=== PATIENT | male | born 1995 | race Hispanic/Latino ===

== ENCOUNTER 2016-06-19 19:05 | Emergency (ER) | payer OTHER ==
[~2016-06-19] VITALS: Ht 167.6 cm; Wt 63.5 kg
--- NOTE | 2016-06-19 20:33 | ED GI/GU/ABDOMINAL COMPLAINT ---
History of Present Illness General Chief Complaint: Lower Extremity Problems Stated Complaint: LEG PAIN HERNIA Source: patient, family Exam Limitations: no limitations Allergies Coded Allergies: No Known Allergies (06/19/16) Triage Note: PT STATES HE HAS A HERNIA IN HIS RIGHT INGUINAL FOLD AND IT IS STARTING TO HURT HIM AND STATES THE PAIN GOES DOWN HIS LEG. PAIN INCREASED SINCE FRIDAY. PT RIGHT LEG SWOLLEN AND STATES HE IS HAVING TROUBLE WALKING. HPI: 21/M with PMH of right side inguinal hernia presented to the ED complaining of 10/10, colicky, continuous pain over the hernia site started yesterday and is getting worse. Pain radiates to the right testicle. Walking and coughing makes pain worse. Patient tried Tylenol but it did not help. Patient reported that yesterday he could not reduce his hernia as usual after which a fever, chills, nausea without vomiting. All his symptom except pain resolved earlier today. Patient had nonradiating, intermittent, dull, 9/10 lateral right knee pain that started this morning after he woke up from sleep. Moving the knee makes pain worse and Tylenol didn't help. Patient denies any trauma, erythema, swelling, warmth over the right knee. No other joint pain. She has stated that he is moving his house for which she needed to go up and down the stairs multiple times yesterday. ([place],[facility]) Vital Signs & Intake/Output Vital Signs & Intake/Output Vital Signs Date Time Temp Pulse Resp B/P Pulse O2 O2 Flow FiO2 Ox Delivery Rate 06/19 2128 97.1 64 18 110/58 100 Room Air 06/19 2007 Room Air 06/19 1927 98.7 79 16 122/72 100 Room Air ED Intake and Output 06/20 0000 06/19 1200 Intake Total Output Total Balance Patient 63.503 kg Weight Triage Nurses Notes Reviewed? yes ([place],RJ Ojeda) Past History Travel History Traveled to [place] past 21 day No Medical History Neurological: NONE EENT: NONE Cardiovascular: NONE Respiratory: NONE Gastrointestinal: NONE Hepatic: NONE Renal: NONE Musculoskeletal: NONE Psychiatric: NONE Endocrine: NONE Blood Disorders: NONE Cancer(s): NONE CANDY DIPPER/Reproductive: NONE Psychosocial History What is your primary language Spanish Tobacco Use: Current Daily Use Daily Tobacco Use Amount/Type: Smokeless tobacco daily ETOH Use: occasional use Illicit Drug Use: marijuana ([place],[facility]) Medical History Any Pertinent Medical History? none Surgical History Surgical History: non-contributory Family History Hx Contributory? No (RJ RAUSCH MD) Review of Systems Review of Systems Constitutional: Reports: chills, fever. Denies: diaphoresis. EENTM: Reports: see HPI. Respiratory: Denies: cough, orthopnea, short of breath. Cardiovascular: Denies: chest pain, palpitations. GI: Reports: abdominal pain, constipation, nausea. Denies: bloating, diarrhea, distention, vomiting. Genitourinary: Denies: dysuria, hematuria. Musculoskeletal: Reports: joint pain (lateral right knee). ([place],[facility]) Review of Systems Skin: Reports: no symptoms. Neurological/Psychological: Reports: no symptoms. Hematologic/Endocrine: Reports: no symptoms. Immunologic/Allergic: Reports: no symptoms. All Other Systems: Reviewed and Negative (RJ RAUSCH MD) Physical Exam Physical Exam General Appearance: alert, moderate distress, thin Head: atraumatic, normal appearance Eyes: Bilateral: normal appearance, PERRL, EOMI. Respiratory: normal breath sounds Cardiovascular: regular rate/rhythm Gastrointestinal: normal bowel sounds, soft, tenderness over right inguinal area., hernia is reducible. No warmth or erythema over hernia area ([place],[facility]) Physical Exam Ears, Nose, Throat, Mouth: hearing grossly normal, moist mucous membrane Neck: normal inspection, supple Back: normal inspection, normal range of motion Extremities: normal range of motion Neurologic/Psych: no motor/sensory deficits, awake, alert, oriented x 3, normal gait, normal mood/affect Skin: intact, normal color, warm/dry Core Measures ACS in differential dx? No Severe Sepsis Present: No Septic Shock Present: No (RJ RAUSCH MD) Progress Differential Diagnosis: strangulated hernia, appendicitis, epididymitis ([place],[facility]) Plan of Care: Orders Procedure Date/time Status LACTIC ACID 06/19 2020 Complete COMPREHENSIVE METABOLIC PANEL 06/19 2020 Complete CBC WITHOUT DIFFERENTIAL 06/19 2020 Complete Laboratory Tests 06/19/162044: Anion Gap 12, Estimated GFR > 60, BUN/Creatinine Ratio 14.3, Glucose 77, Lactic Acid 0.7, Calcium 9.3, Total Bilirubin 1.0, AST 48, ALT 65, Alkaline Phosphatase 58, Total Protein 6.9, Albumin 4.2, Globulin 2.7, Albumin/Globulin Ratio 1.6 06/19/162039: CBC w Diff NO MAN DIFF REQ, RBC 4.80, MCV 80.2, MCH 26.1 L, RDW 14.8 H, MPV 7.3 L, Gran % 65.9, Lymphocytes % 20.9, Monocytes % 9.7 H, Eosinophils % 3.1, Basophils % 0.4, Absolute Granulocytes 4.8, Absolute Lymphocytes 1.5, Absolute Monocytes 0.7 H, Absolute Eosinophils 0.2, Absolute Basophils 0, PUBS MCHC 32.5 L Patient had a history of hernia, yesterday after heavy lifting the hernia came out and he was unable to reduce it all day after which she started to complain of 10/10 pain over the area. Earlier today he was able to reduce the hernia after which the pain was decreased but didn't totally go away. Patient white blood cell is within normal limits, lactic acid is not elevated. CT scan of the abdomen was benign and did not show any acute pathology. Patient will be discharged ([place],[facility]) Diagnostic Imaging: Viewed by Me: CT Scan. Discussed w/RAD: CT Scan. Radiology Impression: PATIENT: YOKO PALM PRESENT AGE: 21 PATIENT ACCOUNT NO: [id number] : 95 LOCATION: [facility] ORDERING PHYSICIAN: NINO ORDAZ MD SERVICE DATE: 06/19/16-2020 EXAM TYPE : CAT - CT ABD & PELVIS W IV CONTRAST EXAMINATION: CT ABDOMEN AND PELVIS WITH CONTRAST CLINICAL INFORMATION: Unreducible inguinal hernia COMPARISON: None. TECHNIQUE: Multidetector volumetric imaging was performed of the abdomen and pelvis after the IV administration of 95 mL of Optiray 320 intravenous contrast. Sagittal and coronal reformatted images were obtained on the technologist's workstation. DLP: 258.43 mGy-cm. FINDINGS: LUNG BASES: The visualized lung bases are unremarkable. LIVER, GALLBLADDER, AND BILIARY TREE: The liver is normal in size, shape, and attenuation. No focal hepatic lesion or biliary ductal dilatation is present. The gallbladder is unremarkable with no evidence of radiopaque gallstones, gallbladder wall thickening, or obvious pericholecystic inflammatory changes. PANCREAS: Unremarkable. SPLEEN: Unremarkable. ADRENAL GLANDS: Unremarkable. KIDNEYS AND URETERS: The kidneys are normal in size, shape , and attenuation. No hydronephrosis, hydroureter, or calculi seen. No perinephric stranding. BLADDER: Unremarkable. GASTROINTESTINAL TRACT: The small and large bowel are unremarkable. The appendix is unremarkable. MESENTERY: Small amount of fluid in the cul-de-sac. No inflammation. No free air. ABDOMINAL WALL: No ventral wall hernia. No inguinal hernia. LYMPH NODES: Normal. VASCULAR: Unremarkable. PELVIC VISCERA: Unremarkable. OSSEOUS STRUCTURES: Unremarkable. IMPRESSION: Normal CT scan abdomen pelvis. No ventral wall or inguinal hernia. DICTATED BY: ANAHI CARRION MD DATE/TIME DICTATED:06/19/162142 BRICK PAVING CHECKER :JUAN DATE/TIME TRANSCRIBED:06/19/162142 CONFIDENTIAL, DO NOT COPY WITHOUT APPROPRIATE AUTHORIZATION. <Electronically signed in Other Vendor System> SIGNED BY: ANAHI CARRION MD 06/19/162151 Initial ED EKG: none ([place],RJ Ojeda) Departure Departure Condition: Stable Departure Forms: Customer Survey General Discharge Information ([place],[facility]) Departure Disposition: HOME OR SELF CARE Clinical Impression Primary Impression: Right inguinal hernia Referrals: PATIENT HAS NO PRIMARY CARE DR (PCP/Family) MICHAEL [place],MARGARETH Clark Additional Instructions: No heavy lifting. Follow-up with Dr. Brown from surgery. Return if the hernia comes out when you're unable to get it back in, if you develops any fevers or chills, the pain worsens or for any concerns. Resident Co-Sign Statement Statement: ED Attending supervision documentation- [X] I saw and evaluated the patient. I have also reviewed all the pertinent lab results and diagnostic results. I agree with the findings and the plan of care as documented in the Resident's documentation. [X] I have reviewed the ED Record and agree with the Resident's documentation. [] Additions or exceptions (if any) to the Resident's note and plan are summarized below: [Patient presents with pain to his right groin area. Patient states he has a known hernia and has been doing some heavier lifting than normal. Yesterday the hernia came out and he was unable to reduce it all day. By this morning he was able to reduce it and the pain has decreased however has not gone away. At its worst the pain was 10 out of 10 and is currently a 7 out of 10. The pain radiates into his lower abdomen. There is no nausea or vomiting. The pain is cramping in nature. Patient denies any fevers or chills. Patient states that throughout the day the hernia has popped out but he is able to reduce it every time. Patient's lab work and CAT scan are normal. Patient will follow up as an outpatient with surgery. Patient advised of signs of incarceration and instructed to return if any of those signs occur or as needed.] ([place],RJ Ojeda)
[2016-06-19 20:56] LABS: ABSOLUTE BASOPHIL COUNT 0 /CUMM (0.0-0.2); ABSOLUTE EOSINOPHIL COUNT 0.2 /CUMM (0.0-0.7); ABSOLUTE GRANULOCYTE CT 4.8 /CUMM (1.4-6.5); ABSOLUTE LYMPH COUNT 1.5 /CUMM (1.2-3.4); ABSOLUTE MONOCYTE COUNT 0.7 /CUMM (0.10-0.60); BASOPHIL % 0.4 % (0.0-2.0); EOSINOPHIL % 3.1 % (0-5); GRANULOCYTE % 65.9 % (42.2-75.2); HEMATOCRIT 38.5 % (42-52); MEAN CORPUSCULAR HGB 26.1 PG (27.0-31.0); MEAN CORPUSCULAR HGB CONC 32.5 G/DL (33.0-37.0); MEAN CORPUSCULAR VOLUME 80.2 FL (80.0-94.0); MEAN PLATELET VOLUME 7.3 FL (7.4-10.4); PLATELET COUNT 199 /CUMM (130-400); RBC DISTRIBUTION WIDTH 14.8 % (11.5-14.5); WHITE BLOOD CELL COUNT 7.3 /CUMM (4.8-10.8)
[2016-06-19 21:29] VITALS: BP 110/58
--- NOTE | 2016-06-19 21:52 | CT SCAN REPORT ---
EXAMINATION: CT ABDOMEN AND PELVIS WITH CONTRAST CLINICAL INFORMATION: Unreducible inguinal hernia COMPARISON: None. TECHNIQUE: Multidetector volumetric imaging was performed of the abdomen and pelvis after the IV administration of 95 mL of Optiray 320 intravenous contrast. Sagittal and coronal reformatted images were obtained on the technologist's workstation. DLP: 258.43 mGy-cm. FINDINGS: LUNG BASES: The visualized lung bases are unremarkable. LIVER, GALLBLADDER, AND BILIARY TREE: The liver is normal in size, shape, and attenuation. No focal hepatic lesion or biliary ductal dilatation is present. The gallbladder is unremarkable with no evidence of radiopaque gallstones, gallbladder wall thickening, or obvious pericholecystic inflammatory changes. PANCREAS: Unremarkable. SPLEEN: Unremarkable. ADRENAL GLANDS: Unremarkable. KIDNEYS AND URETERS: The kidneys are normal in size, shape, and attenuation. No hydronephrosis, hydroureter, or calculi seen. No perinephric stranding. BLADDER: Unremarkable. GASTROINTESTINAL TRACT: The small and large bowel are unremarkable. The appendix is unremarkable. MESENTERY: Small amount of fluid in the cul-de-sac. No inflammation. No free air. ABDOMINAL WALL: No ventral wall hernia. No inguinal hernia. LYMPH NODES: Normal. VASCULAR: Unremarkable. PELVIC VISCERA: Unremarkable. OSSEOUS STRUCTURES: Unremarkable. IMPRESSION: Normal CT scan abdomen pelvis. No ventral wall or inguinal hernia.
== END 2016-06-19 22:15 ==
LOC: ERH 19:05
PROVIDERS: Student in an Organized Health Care Education/Training Program
DX: K40.90 Unilateral inguinal hernia, without obstruction or gangrene, not specified as recurrent (principal)
CPT/HCPCS: 74177; 96374; J1885

== ENCOUNTER → 2016-07-26 | Day surgery (SDC) | payer OTHER ==
[~2016-07-26] VITALS: Ht 172.7 cm; Wt 68.0 kg
[~2016-07-26] MED LIST: COLACE100 M1 PO; DILAUDID2 M1 PO
--- NOTE | 2016-07-26 14:20 | Operative Report ---
Operative/Inv Procedure Report Surgery Date: 07/26/16 Name of Procedure: Laparoscopic right inguinal hernia repair Pre-Operative Diagnosis: Right inguinal hernia Post-Operative Diagnosis: Same Estimated Blood Loss: scant Surgeon/Freight Tallier: MICHAEL BAY,MARGARETH Clark/Suzi TAN Anesthesia: general endotracheal tube Implants: Parietex mesh Operative/Procedure Note Note: After consent she was brought to the operating room and laid supine. Gen. anesthesia was obtained and her abdomen was prepped and draped. Skin below the umbilicus was after local anesthesia transverse incision made sharply. We dissected the to the right-sided rectus fascia which was incised transversely and stay sutures placed. The muscles retracted laterally and a plane behind it developed with a peanut. The dissecting balloon was placed to the level of pubis and inflated under direct vision the camera. It was then deflated and replaced with a blunt Gallegos port. Gas was instilled. 2, 5 mm ports placed in the infraumbilical midline after local anesthesia was instilled under direct vision and camera. Dissection was begun at the pubis and symphysis delineated. Domingo's ligament was cleared there is no direct hernia. There is a large indirect hernia and the iliopubic tract developed. The cord structures and circumvention dissected. There were peeled off the hernia sac bluntly. The sac was then extracted from the internal ring. This took quite a bit of dissection due to the size of the hernia. The tissues were then reflected medially. A right-sided Parietex mesh was then placed in the cavity. It was placed around the cord structures re-create the internal ring and cover the femoral indirect spaces. Once the mesh was in proper position the gas was allowed to escape on maintaining proper orientation of it. Ports and delivered fascia closed with 0 Vicryl suture. Skin incisions closed with 4-0 Vicryl. Steri-Strips and sterile dressing applied sponge and needle counts are correct Findings: Indirect
== END ==
LOC: STS 01:15
DX: K40.90 Unilateral inguinal hernia, without obstruction or gangrene, not specified as recurrent (principal); J45.909 Unspecified asthma, uncomplicated
CPT/HCPCS: C1781; J0131; J0690; J2250

== ENCOUNTER 2016-07-27 22:12 | Observation (INO) | payer OTHER ==
[~2016-07-27] VITALS: Ht 172.7 cm; Wt 65.8 kg
--- NOTE | 2016-07-27 22:39 | ED GI/GU/ABDOMINAL COMPLAINT ---
History of Present Illness General Chief Complaint: General Adult Stated Complaint: +N/V, ABD PAIN, HAD HERNIA SX YESTERDAY Source: patient Exam Limitations: no limitations Vital Signs & Intake/Output Vital Signs & Intake/Output ED Intake and Output 07/29 0000 07/28 1200 Intake Total 1320 780 Output Total 800 Balance 520 780 Intake, IV 600 300 Intake, Oral 720 480 Output, Urine 800 Patient 145 lb Weight Allergies Coded Allergies: morphine (Intermediate, GENERALIZED RASH AND ITCHING 07/28/16) Reconcile Medications Docusate Sodium (Colace) 100 MG CAPSULE 1 CAP PO BID constipation Hydromorphone HCl (Dilaudid) 2 MG TABLET 1-2 TAB PO Q4-6H PRN PAIN Triage Note: PT TO TRIAGE WITH HX OF HERNIA REPAIR YESTERDAY AND TODAY PT C/O ABD PAIN 03/18, N/Vx4 TIMES AT HOME. PT VOMITED LARGE AMOUNT OF UNDIGESTED FOOD IN TRIAGE. NO BLOOD NOTED IN EMESIS. LAST SMALL BM TODAY. VSS. Triage Nurses Notes Reviewed? yes Onset: Abrupt Duration: hour(s): (several) Timing: multiple episodes today Severity Numbers: 10 Location: generalized abdomen Radiation: no radiation Activities at Onset: HERNIA SURGERY YESTERDAY No Modifying Factors: none Associated Symptoms: abdominal pain, nausea/vomiting HPI: This is a 21-year-old male presents to the ER with chief complaint of acute abdominal pain nausea and vomiting multiple episodes at home. According to the cousin some of the vomiting looked like it contained stool. He is status post hernia repair by Dr. Brown yesterday. He was feeling okay but had some pain after surgery yesterday. Today the pain has gotten much more intense. Last bowel movement was this morning within normal limits. Denies any fever or chills. Pain is diffuse, made worse with nausea and vomiting. Past History Travel History Traveled to [place] past 21 day No Medical History Any Pertinent Medical History? see below for history Neurological: NONE EENT: NONE Cardiovascular: NONE Respiratory: NONE Gastrointestinal: NONE Hepatic: NONE Renal: NONE Musculoskeletal: NONE Psychiatric: NONE Endocrine: NONE Blood Disorders: NONE Cancer(s): NONE QUALITY IMPROVEMENT ENGINEER/Reproductive: NONE Surgical History Surgical History: non-contributory Psychosocial History What is your primary language Sinhala Tobacco Use: Current Daily Use Daily Tobacco Use Amount/Type: => 5 Cigarettes daily Family History Hx Contributory? No Review of Systems Review of Systems Constitutional: Reports: malaise, weakness. Denies: chills, diaphoresis. EENTM: Reports: no symptoms. Respiratory: Reports: no symptoms. Cardiovascular: Denies: chest pain, palpitations. GI: Reports: abdominal pain, bloating, nausea, vomiting. Genitourinary: Reports: see HPI (RIGHT SCROTAL SWELLING). Denies: discharge, dysuria. Musculoskeletal: Reports: no symptoms. Skin: Reports: no symptoms. Neurological/Psychological: Reports: anxiety. Hematologic/Endocrine: Denies: bruising, bleeding, polyuria, polydipsia. Immunologic/Allergic: Denies: splenectomy. All Other Systems: Reviewed and Negative Physical Exam Physical Exam General Appearance: alert, awake, anxious, moderate distress, thin Head: atraumatic, normal appearance Eyes: Bilateral: normal appearance, PERRL, EOMI. Ears, Nose, Throat, Mouth: hearing grossly normal, DRY MUCUS MEMBRANES Neck: normal inspection, supple, full range of motion Respiratory: normal breath sounds, chest non-tender, no respiratory distress Cardiovascular: regular rate/rhythm Peripheral Pulses: 2+ radial (R), 2+ radial (L) Gastrointestinal: FIRM, PERITONEAL SIGNS, INCISION CLEAN,DRY AND INTACT Male Genitals: RIGHT SCROTAL SWELLING, NO FIRM MASSES Extremities: normal range of motion Neurologic/Psych: awake, alert, oriented x 3 Core Measures ACS in differential dx? No Severe Sepsis Present: No Septic Shock Present: No Progress Differential Diagnosis: PUD/GERD, perforated viscous, SBO, PERITONITIS Plan of Care: Orders Procedure Date/time Status Place in observation 07/28 217 Active URINALYSIS 07/27 2253 Active PARTIAL THROMBOPLASTIN TIME 07/27 2253 Complete PROTHROMBIN TIME 07/27 2253 Complete COMPREHENSIVE METABOLIC PANEL 07/27 2253 Complete CBC WITHOUT DIFFERENTIAL 07/27 2253 Complete Laboratory Tests 07/27/162054: Anion Gap 12, Estimated GFR > 60, BUN/Creatinine Ratio 16.3, Glucose 90, Calcium 9.5, Total Bilirubin 1.1, AST 24, ALT 33, Alkaline Phosphatase 50, Total Protein 7.4, Albumin 4.7, Globulin 2.7, Albumin/Globulin Ratio 1.7, PT 11.3, INR 1.08, APTT 30, CBC w Diff NO MAN DIFF REQ, RBC 5.03, MCV 81.1, MCH 26.8 L, RDW 14.4, MPV 6.9 L, Gran % 65.7, Lymphocytes % 26.8, Monocytes % 6.8, Eosinophils % 0.3, Basophils % 0.4, Absolute Granulocytes 5.8, Absolute Lymphocytes 2.4, Absolute Monocytes 0.6, Absolute Eosinophils 0, Absolute Basophils 0, PUBS MCHC 33.0 11:32 PM DILAUDID GIVEN. PATIENT REPORTS NO RELIEF. CT SCAN PENDING. 1:[address] consistent with ileus, air in the subcutaneous tissues as well as into the mediastinum. Some postop swelling but no definite obstruction. Patient still with intractable nausea and abdominal pain after Dilaudid and morphine. Patient had allergic reaction to morphine. MULTIPLE DOSES OF IV PAIN CONTROL, IV ANTIEMETICS GIVEN. D/W DR COOLEY. CT NEGATIVE FOR ACUTE PROCESS. WILL PLACE IN OBSERVATION TO CONTROL SYMPTOMS. ([place]O BAY,JAYESH) Diagnostic Imaging: Viewed by Me: CT Scan. Discussed w/RAD: CT Scan. Radiology Impression: PATIENT: YOKO PALM PRESENT AGE: 21 PATIENT ACCOUNT NO: [id number] : 95 LOCATION: [facility] ORDERING PHYSICIAN: JAYESH KHAN MD SERVICE DATE: 07/27/16 EXAM TYPE: CAT - CT ABD & PELVIS W IV CONTRAST EXAMINATION: CT ABDOMEN AND PELVIS WITH CONTRAST CLINICAL INFORMATION: Abdominal pain. Vomiting. COMPARISON: CT scan abdomen pelvis 06/19/2016 TECHNIQUE: Multidetector volumetric imaging was performed of the abdomen and pelvis before and after the IV administration of 94 mL of Optiray intravenous contrast. Sagittal and coronal reformatted images were obtained on the technologist's workstation. DLP: 299.18 mGy-cm FINDINGS: LUNG BASES: Air seen anterior to the heart at the lung base, mediastinum or pericardium. There is air in the right and left subcutaneous tissue along the anterior chest wall. No pneumothorax or pleural effusion. No infiltrate. MESENTERY/ABDOMINAL WALL: No ventral wall hernia. Patient had a right inguinal repair recently. There is no evidence of recurrent inguinal hernia. This postoperative changes with subcutaneous air on the right and left side of the abdomen. There is a collection of air around the umbilicus where there is some soft tissue stranding at the umbilicus. Small amount of fluid in the pelvis and the right inguinal region consistent with the recent surgery. No abscess. There is air extending into the right scrotal sac with fluid. LIVER, GALLBLADDER, AND BILIARY TREE: The liver is normal in size, shape, and attenuation. No focal hepatic lesion or biliary ductal dilatation is present. The gallbladder is unremarkable with no evidence of radiopaque gallstones, gallbladder wall thickening, or obvious pericholecystic inflammatory changes. PANCREAS: Unremarkable. SPLEEN: Unremarkable. ADRENAL GLANDS: Unremarkable. KIDNEYS AND URETERS: The kidneys are normal in size, shape, and attenuation. No hydronephrosis, hydroureter, or calculi seen. No perinephric stranding. BLADDER: Unremarkable. GASTROINTESTINAL TRACT: Mild prominence of some small bowel loops in the midabdomen with scattered air-fluid levels in large and small bowel. No transition point. May be mild ileus but no evidence for obstruction. No bowel wall thickening or edema. The appendix is not identified. The LYMPH NODES: Normal. VASCULAR: Unremarkable. PELVIC VISCERA: Unremarkable. OSSEOUS STRUCTURES : Unremarkable. IMPRESSION: There is free air in the abdomen as well as air in the subcutaneous tissues in the right and left anterior abdominal wall and around the umbilicus and extending into the right scrotal sac. Small amount of fluid in the mesentery but no abscess. Mild prominence of some small bowel loops without transition point raising question of ileus but no obstruction. Changes are all consistent with history of recent surgery of right inguinal repair with no recurrent hernia. This critical result was discussed with Dr. Khan on 2016, 1:30 AM and it was ascertained that the content and urgency of the report was understood at the time of direct communication. DICTATED BY: ANAHI CARRION MD DATE/TIME DICTATED:07/28/16118 HOTEL OR MOTEL ROOM SERVICE SUPERVISOR:JUAN DATE/TIME TRANSCRIBED:07/28/16118 CONFIDENTIAL, DO NOT COPY WITHOUT APPROPRIATE AUTHORIZATION. <Electronically signed in Other Vendor System> SIGNED BY: ANAHI CARRION MD 07/28/16 0141 Initial ED EKG: none Departure Departure Time of Disposition: 217 Disposition: STILL A PATIENT Condition: Stable Clinical Impression Primary Impression: Ileus Secondary Impressions: Post-operative pain Referrals: PATIENT HAS NO PRIMARY CARE DR (PCP/Family) Departure Forms: Customer Survey General Discharge Information Prescriptions: Current Visit Scripts Hydromorphone HCl (Dilaudid) 1-2 TAB PO Q4-6H PRN PAIN #24 TAB Docusate Sodium (Colace) 1 CAP PO BID #20 CAP Observation Note Spoke With: DAT COOLEY DO Physician Advisor Notified: HUGH WEBB DO Place Patient In: Non-ED OBS Care Area Rationale for Observation: My rational for observation is as follows [IV FLUIDS, IV ANTIEMETICS, PAIN CONTROL, ADVANCE DIET, SERIAL ABDOMINAL EXAMINATIONS]. Critical Care Note Critical Care Note Critical Care Time: 30-74 min
[2016-07-27 23:09] LABS: ABSOLUTE BASOPHIL COUNT 0 /CUMM (0.0-0.2); ABSOLUTE EOSINOPHIL COUNT 0 /CUMM (0.0-0.7); ABSOLUTE GRANULOCYTE CT 5.8 /CUMM (1.4-6.5); ABSOLUTE LYMPH COUNT 2.4 /CUMM (1.2-3.4); ABSOLUTE MONOCYTE COUNT 0.6 /CUMM (0.10-0.60); BASOPHIL % 0.4 % (0.0-2.0); EOSINOPHIL % 0.3 % (0-5); GRANULOCYTE % 65.7 % (42.2-75.2); HEMATOCRIT 40.8 % (42-52); MEAN CORPUSCULAR HGB 26.8 PG (27.0-31.0); MEAN CORPUSCULAR VOLUME 81.1 FL (80.0-94.0); MEAN PLATELET VOLUME 6.9 FL (7.4-10.4); PLATELET COUNT 209 /CUMM (130-400); RBC DISTRIBUTION WIDTH 14.4 % (11.5-14.5); RED BLOOD CELL CT 5.03 /CUMM (4.70-6.10); WHITE BLOOD CELL COUNT 8.9 /CUMM (4.8-10.8)
[2016-07-27 23:18] LABS: PT 11.3 SEC (9.4-12.5); PTT 30 SEC (25-37)
--- NOTE | 2016-07-28 01:41 | CT SCAN REPORT ---
EXAMINATION: CT ABDOMEN AND PELVIS WITH CONTRAST CLINICAL INFORMATION: Abdominal pain. Vomiting. COMPARISON: CT scan abdomen pelvis 06/19/2016 TECHNIQUE: Multidetector volumetric imaging was performed of the abdomen and pelvis before and after the IV administration of 94 mL of Optiray intravenous contrast. Sagittal and coronal reformatted images were obtained on the technologist's workstation. DLP: 299.18 mGy-cm FINDINGS: LUNG BASES: Air seen anterior to the heart at the lung base, mediastinum or pericardium. There is air in the right and left subcutaneous tissue along the anterior chest wall. No pneumothorax or pleural effusion. No infiltrate. MESENTERY/ABDOMINAL WALL: No ventral wall hernia. Patient had a right inguinal repair recently. There is no evidence of recurrent inguinal hernia. This postoperative changes with subcutaneous air on the right and left side of the abdomen. There is a collection of air around the umbilicus where there is some soft tissue stranding at the umbilicus. Small amount of fluid in the pelvis and the right inguinal region consistent with the recent surgery. No abscess. There is air extending into the right scrotal sac with fluid. LIVER, GALLBLADDER, AND BILIARY TREE: The liver is normal in size, shape, and attenuation. No focal hepatic lesion or biliary ductal dilatation is present. The gallbladder is unremarkable with no evidence of radiopaque gallstones, gallbladder wall thickening, or obvious pericholecystic inflammatory changes. PANCREAS: Unremarkable. SPLEEN: Unremarkable. ADRENAL GLANDS: Unremarkable. KIDNEYS AND URETERS: The kidneys are normal in size, shape, and attenuation. No hydronephrosis, hydroureter, or calculi seen. No perinephric stranding. BLADDER: Unremarkable. GASTROINTESTINAL TRACT: Mild prominence of some small bowel loops in the midabdomen with scattered air-fluid levels in large and small bowel. No transition point. May be mild ileus but no evidence for obstruction. No bowel wall thickening or edema. The appendix is not identified. The LYMPH NODES: Normal. VASCULAR: Unremarkable. PELVIC VISCERA: Unremarkable. OSSEOUS STRUCTURES: Unremarkable. IMPRESSION: There is free air in the abdomen as well as air in the subcutaneous tissues in the right and left anterior abdominal wall and around the umbilicus and extending into the right scrotal sac. Small amount of fluid in the mesentery but no abscess. Mild prominence of some small bowel loops without transition point raising question of ileus but no obstruction. Changes are all consistent with history of recent surgery of right inguinal repair with no recurrent hernia. This critical result was discussed with Dr. Khan on 05/27/2017, 1:30 AM and it was ascertained that the content and urgency of the report was understood at the time of direct communication.
--- NOTE | 2016-07-28 02:41 | History & Physical ---
MARIO HERNANDEZ 07/28/16 0228: General Information and HPI MD Statement: I have seen and personally examined RUDY PALM and documented this H&P. The patient is a 21 year old M who presented with a patient stated chief complaint of []. Source of Information: patient, family Exam Limitations: no limitations History of Present Illness: Rudy Palm is a 21 year old male, relatively healthy who is POD #1 s/p uneventful laparoscopic right inguinal hernia repair with mesh. He received a TAP block preoperatively was discharged home yesterday without complication with a prescription for Percocet. According to the patient and his female cousin who took care of him initially post-op, he went home, took his prescribed pain medication and it did not ease his pain. He also proceeded to vomit all of his stomach contents over the last 24 hours, unable to keep anything down. The patient also endorses chest pain across the middle portion of his chest. The pain does not radiate into his jaw or down his left arm. Concerned that something went wrong during the surgery and his continued 10/10 abdominal pain, they came to the ED for evaluation. Denies fever, chills, shortness of breath, cough, or dysuria. He has had normal bowel movements, the last was yesterday evening. Feels he is unable to pass gas. Past History Travel History Traveled to [place] past 21 day No Medical History Neurological: NONE EENT: NONE Cardiovascular: NONE Respiratory: NONE Gastrointestinal: NONE Hepatic: NONE Renal: NONE Musculoskeletal: NONE Psychiatric: NONE Endocrine: NONE Blood Disorders: NONE Cancer(s): NONE GRAB DRIVER/Reproductive: NONE Surgical History Surgical History: non-contributory Past Family/Social History Psychosocial History Smoking Status: Current Everyday Smoker Review of Systems Review of Systems Constitutional: Reports: see HPI. GI: Reports: abdominal pain, nausea, vomiting. Genitourinary: Denies: dysuria. Exam & Diagnostic Data Last 24 Hrs of Vital Signs/I&O Vital Signs Date Time Temp Pulse Resp B/P Pulse O2 O2 Flow FiO2 Ox Delivery Rate 07/28 0100 96.9 78 20 112/61 100 Room Air 07/27 2218 99.1 86 18 123/83 100 Room Air Intake & Output 07/28 0800 07/28 0000 07/27 1600 Intake Total 0 Output Total Balance 0 Intake, Oral 0 Patient 140 lb Weight Physical Exam General Appearance Alert, Oriented X3, Cooperative, No Acute Distress Cardiovascular Regular Rate, Normal S1, Normal S2, No Murmurs, Gallops, Rubs Lungs Clear to Auscultation, Normal Air Movement, no crepitus on palpation of anterior chest Abdomen Normal Bowel Sounds, Soft, No Tenderness, incisions x3 intact with steristrips. no surrounding erythema or drainage noted. Extremities no calf tenderness or edema to lottie lower extremities, feet warm. Reproductive (MALE) edema noted to right scrotum. no palpable mass to suggest recurrence of hernia Diagnostic Data Other Results EXAM TYPE: CAT - CT ABD & PELVIS W IV CONTRAST EXAMINATION: CT ABDOMEN AND PELVIS WITH CONTRAST CLINICAL INFORMATION: Abdominal pain. Vomiting. COMPARISON: CT scan abdomen pelvis 06/19/2016 TECHNIQUE: Multidetector volumetric imaging was performed of the abdomen and pelvis before and after the IV administration of 94 mL of Optiray intravenous contrast. Sagittal and coronal reformatted images were obtained on the technologist's workstation. DLP: 299.18 mGy-cm FINDINGS: LUNG BASES: Air seen anterior to the heart at the lung base, mediastinum or pericardium. There is air in the right and left subcutaneous tissue along the anterior chest wall. No pneumothorax or pleural effusion. No infiltrate. MESENTERY/ABDOMINAL WALL: No ventral wall hernia. Patient had a right inguinal repair recently. There is no evidence of recurrent inguinal hernia. This postoperative changes with subcutaneous air on the right and left side of the abdomen. There is a collection of air around the umbilicus where there is some soft tissue stranding at the umbilicus. Small amount of fluid in the pelvis and the right inguinal region consistent with the recent surgery. No abscess. There is air extending into the right scrotal sac with fluid. LIVER, GALLBLADDER, AND BILIARY TREE: The liver is normal in size, shape, and attenuation. No focal hepatic lesion or biliary ductal dilatation is present. The gallbladder is unremarkable with no evidence of radiopaque gallstones, gallbladder wall thickening, or obvious pericholecystic inflammatory changes. PANCREAS: Unremarkable. SPLEEN: Unremarkable. ADRENAL GLANDS: Unremarkable. KIDNEYS AND URETERS: The kidneys are normal in size, shape, and attenuation. No hydronephrosis, hydroureter, or calculi seen. No perinephric stranding. BLADDER: Unremarkable. GASTROINTESTINAL TRACT: Mild prominence of some small bowel loops in the midabdomen with scattered air-fluid levels in large and small bowel. No transition point. May be mild ileus but no evidence for obstruction. No bowel wall thickening or edema. The appendix is not identified. The LYMPH NODES: Normal. VASCULAR: Unremarkable. PELVIC VISCERA: Unremarkable. OSSEOUS STRUCTURES: Unremarkable. IMPRESSION: There is free air in the abdomen as well as air in the subcutaneous tissues in the right and left anterior abdominal wall and around the umbilicus and extending into the right scrotal sac. Small amount of fluid in the mesentery but no abscess. Mild prominence of some small bowel loops without transition point raising question of ileus but no obstruction. Changes are all consistent with history of recent surgery of right inguinal repair with no recurrent hernia. This critical result was discussed with Dr. Khan on 05/27/2017, 1:30 AM and it was ascertained that the content and urgency of the report was understood at the time of direct communication. DICTATED BY: ANAHI CARRION MD DATE/TIME DICTATED:07/28/16118 CRISIS NURSE:JUAN DATE/TIME TRANSCRIBED:07/28/16118 CONFIDENTIAL, DO NOT COPY WITHOUT APPROPRIATE AUTHORIZATION. <Electronically signed in Other Vendor System> SIGNED BY: ANAHI CARRION MD 07/28/16 0141 Assessment/Plan Assessment: A: 21 year old male with no PMH POD #1 s/p uneventful laparoscopic right inguinal hernia repair with mesh who presented to ED with complaints of 10/10 abdominal pain, bloating, chest pain, N/V and inability to pass flatus. AVSS. Plan: Admit for observation to Dr. Cooley. IVF at 75ml/hr. Regular diet. Pain control overnight. D/C in am if patient's pain is improved. Discussed case with Dr. Cooley. No further labwork needed. As Ranked By This Provider Problem List: 1. Post-operative pain Core Measures/Miscellaneous Acute Coronary Syndrome ACS Diagnosis: No Cerebrovascular Accident CVA/TIA Diagnosis: No Congestive Heart Failure CHF Diagnosis: No Venous Thromboembolism VTE Risk Factors: Surgery VTE Prophylaxis Ordered Inpt: Mech & Pharm No Mech VTE prophylaxis d/t: No contraindications No VTE Pharm Prophylaxis d/t: No contraindications VTE Diagnosis: No VTE Type: NONE VTE Confirmed by (Test): NONE Severe Sepsis Severe Sepsis Present: No Septic Shock Septic Shock Present: No Miscellaneous Documentation Attending Case Discussed With: DAT COOLEY DO Primary Care Physician: PATIENT HAS NO PRIMARY CARE DR Patient sees these Specialists Dr. Rodriguez Level of Patient Care: General Surgical MARGARETH RODRIGUEZ MD 07/28/16 0939: General Information and HPI Allergies/Medications Allergies: Coded Allergies: morphine (Intermediate, GENERALIZED RASH AND ITCHING 07/28/16) Home Med list Docusate Sodium (Colace) 100 MG CAPSULE 1 CAP PO BID constipation Hydromorphone HCl (Dilaudid) 2 MG TABLET 1-2 TAB PO Q4-6H PRN PAIN DAT COOLEY DO 07/28/16 1445: Attending MD Review Statement Attending Statement Attending MD Statement: discuss w/resident/PA/TERMINAL GAUGER, agreed w/resident/PA/TERMINAL GAUGER, reviewed EMR data (avail), reviewed images Attending Assessment/Plan: Agree with above. Post-op pain no relieved with PO meds at home. Unable to to be discharged d/t the discomfort. NO abnormalities on CT. Will bserve, pain control , D/C once pain under adequate control.
[2016-07-28 04:11] VITALS: BP 100/60
--- NOTE | 2016-07-28 05:52 | Patient Discharge Instructions ---
Discharge Instructions General Discharge Information You were seen/treated for: abdominal pain after hernia repair You had these procedures: none Watch for these problems: fever greater than 101F, chest pain, shortness of breath, redness or drainage from incisions Special Instructions: You can shower. White strips will eventually fall off. The edges will start to curl and then you can peel them off after one week. Diet Continue normal diet: Yes Activity Full Activity/No Limits: No Pounds, do NOT lift more than: 10 Acute Coronary Syndrome Inclusion Criteria At DC or during hospital stay patient has or had the following: ACS DIAGNOSIS No Discharge Core Measures Meds if any: Prescribed or Continued at Discharge Meds if any: NOT Prescribed or Continued at Discharge Congestive Heart Failure Inclusion Criteria At DC or during hospital stay patient has or had the following: CHF DIAGNOSIS No Discharge Core Measures Meds if any: Prescribed or Continued at Discharge Meds if any: NOT Prescribed or Continued at Discharge Cerebrovascular accident Inclusion Criteria At DC or during hospital stay patient has or had the following: CVA/TIA Diagnosis No Discharge Core Measures Meds if any: Prescribed or Continued at Discharge Meds if any: NOT Prescribed or Continued at Discharge Venous thromboembolism Inclusion Criteria VTE Diagnosis No VTE Type NONE (sleep) VTE Confirmed by (Test) NONE Discharge Core Measures - Per Current guidelines, there needs to be overlap - treatment for the first 5 days of Warfarin therapy. - If discharged on Warfarin prior to 5 days of - overlap therapy, the patient will need to be - assessed for post discharge needs including - *Post discharge parental anticoagulation - *Warfarin and/or parental anticoagulation education - *Follow up date to check INR post discharge At least 5 days overlap therapy as Inpatient No Meds if any: Prescribed or Continued at Discharge Note: Overlap Therapy is Warfarin and Anticoagulant Meds if any: NOT Prescribed or Continued at Discharge
[2016-07-28 07:36] VITALS: BP 98/58
[2016-07-28] MEDS ORDERED: DILAUDID2 M1 PO (09:09)
[2016-07-28] MEDS ORDERED: COLACE100 M1 PO (09:11)
--- NOTE | 2016-07-28 09:19 | PN- General Surgery ---
See Addendum Subjective Subjective: Reports improvement in level of discomfort overnight. Presently denies nausea and vomitting. Has been having bm but states that he has been straining. Denies chest pain, shortness of breath and difficulty breathing. Objective Vital Signs and I&Os Vital Signs Date Time Temp Pulse Resp B/P Pulse O2 O2 Flow FiO2 Ox Delivery Rate 07/28 0736 98.8 80 20 98/58 97 Room Air 07/28 0411 98.6 70 20 100/60 99 Room Air 07/28 0345 96.9 70 18 113/58 100 Room Air 07/28 0100 96.9 78 20 112/61 100 Room Air 07/27 2218 99.1 86 18 123/83 100 Room Air Intake & Output 07/28 1600 07/28 0800 07/28 0000 07/27 1600 07/27 0800 07/27 0000 Intake Total 780 0 Output Total Balance 780 0 Intake, IV 300 Intake, Oral 480 0 Patient 145 lb 140 lb Weight Physical Exam: General: Alert and oriented x3, no acute distress Cardiac: RRR, s1s2 Pulm: C T A bilaterally Abdomen: Mild tenderness in right groin, mild right scrotal swelling. Mild chanell-incisional tenderness. Non-distended Extremiteis: MOves all extremities, distal sensation intact. Bialteral calves soft and non-tender Surgical site: Steri-strips in place, clean and dry. No chanell-incisional erythema Assessment/Plan Assessment/Plan This is a 21 year old male POD 2, s/p laparoscopic repair of right inquinal hernina, admitted to hospital overnight for pain control, reports improvemnet -D/C to home on po dilaudid -Colace po bid -Regular diet -Maintain adequate hydration -Frequent ambulation -Contact Dr. Brown's office if failure to improve Core Measures/Miscellaneous Venous Thromboembolism VTE Risk Factors: Surgery VTE Contraindications: No Contraindications VTE Prophylaxis Ordered Inpt Mech & Pharm VTE Diagnosis: No VTE Type: NONE VTE Confirmed by (Test): NONE Beta Jackie Is Beta Jackie a Home Med? No Antibiotics Is Patient on Antibiotics? No
--- NOTE | 2016-07-28 09:26 | Surg Short-stay <48hrs Dis Sum ---
Visit Information Visit Dates Admission Date: 07/28/16 Discharge Date: 07/28/2016 Surgical Short Stay DC Summary Admission Diagnosis: Post op pain, s/p laparoscopic repair of right inguinal hernia Final Diagnosis: same Procedure(s): none Summary/Significant Findings: Patient presented to ER with c/o pain s/p surgical intervention one day prior. Also noted scrotal swelling on operative side. Was evaluated and treated by ED physician, CT scan of abdomen was performed and all findings were noted to be consistent with normal post operative changes. Patient was sent to general surgical floor for pain managment. Responded well to new pain medications. No nausea or vomitting, vital signs were stable and within normal limits. Was able to void spontaneously. Was discharged to home with instructions to follow up with surgeon prior to scheduled post operative visit if no further improvement. Condition at Discharge: stable Discharge Disposition: home or self care Discharge instructions provided to patient/family: Yes Post discharge follow-up plan: Contact Dr. Brown's office to arrange for earlier appointment if no further improvement, otherwise continue with plan to follow up on 08/08/2016
== END 2016-07-28 14:35 ==
LOC: ENRESERVDT → ENRESERVTM → ERH 22:12 → ENPENDDIS 07-28 02:18 → ERHI 07-28 02:18 → EDBEDREQ 07-28 02:29 → 2NA 07-28 03:55
PROVIDERS: Emergency Medicine; ADMIT Surgery
DX: G89.18 Other acute postprocedural pain (principal); R07.9 Chest pain, unspecified; R10.9 Unspecified abdominal pain; R14.0 Abdominal distension (gaseous); R11.2 Nausea with vomiting, unspecified; F17.200 Nicotine dependence, unspecified, uncomplicated
CPT/HCPCS: 74177; 96361; 96372; 96374; 96375; G0378; J1200; J1644; J2405

== ENCOUNTER 2017-08-29 20:41 | Emergency (ER) | payer SELFPAY ==
[~2017-08-29] VITALS: Ht 172.7 cm; Wt 72.6 kg
[2017-08-29 21:22] VITALS: BP 116/77
--- NOTE | 2017-08-29 22:00 | RADIOLOGY REPORT ---
EXAMINATION: XRY-FOOT TWO VIEWS RIGHT, XRY-ANKLE 3 OR MORE VIEWS R CLINICAL INFORMATION: 22-year-old male patient with trauma and subsequent pain. COMPARISON: None. TECHNIQUE: 3 views of the right ankle and 2 additional views of the right foot. FINDINGS: The bones and joints are normal. There is no focal soft tissue swelling. Ankle mortise is normal. No dislocation is seen. IMPRESSION: Exams negative for fracture or dislocation.
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
[2017-08-29] MEDS ORDERED: IBUPROFEN800 M1 PO (22:59)
== END 2017-08-29 23:20 ==
LOC: ERH 20:41
DX: S96.912A Strain of unspecified muscle and tendon at ankle and foot level, left foot, initial encounter (principal); S97.81XA Crushing injury of right foot, initial encounter; X58.XXXA Exposure to other specified factors, initial encounter; Y92.9 Unspecified place or not applicable; Y93.9 Activity, unspecified
CPT/HCPCS: 73610-RT; 73620-RT